=== PATIENT | male | born 1960 | race African-American/Black ===

== ENCOUNTER 2020-01-28 03:43 | Emergency (ER) | payer BC ==
[~2020-01-28] VITALS: Ht 177.8 cm; Wt 79.4 kg
[2020-01-28] MEDS ORDERED: IBUPROFEN 600 MG TABLET PO ONE (03:58)
[2020-01-28] MEDS ORDERED: MINERAL OIL 133 ML (PYXIS) 1 EA ENEMA RC ONE ×2 (03:58→04:00)
[2020-01-28] MEDS ORDERED: IBUPROFEN 200 MG TABLET ONE (03:59)
[2020-01-28] MEDS ORDERED: IBUPROFEN 400 MG TABLET PO ONE (04:00)
--- NOTE | 2020-01-28 04:05 | NUR ---
PT CAME TO THE ED FOR CONSTIPATION X 2 DAYS. USED FLEET ENEMA AT HOME. PT AAOX4, VSS, RESPIRATIONS EVEN AND UNLABORED ON RA W/ NAD NOTED. PT CONNECTED TO THE MONITOR AND POX
--- NOTE | 2020-01-28 04:09 | NUR ---
EKG AT BEDSIDE
[2020-01-28] MEDS ORDERED: LORAZEPAM 1 MG TABLET PO ONE (05:30)
[2020-01-28] MEDS ORDERED: LORAZEPAM 1 MG TABLET ONE (05:30)
[2020-01-28] MEDS ORDERED: MAGNESIUM CITRATE 296 ML BOTTLE ONE (05:39)
--- NOTE | 2020-01-28 05:40 | NUR ---
PT STATES HE FEELS BETTER. VSS. MADE AWARE. NOT IN RESPIRATORY DISTRESS.
[2020-01-28 05:56] VITALS: BP 125/84
--- NOTE | 2020-01-28 05:56 | NUR ---
Patient discharged to home in stable condition. Written and verbal after care instructions given. Patient verbalizes understanding of instruction.
[2020-01-28] MEDS ORDERED: MAGNESIUM CITRATE 296 ML BOTTLE PO ONE (06:00)
== END 2020-01-28 05:57 | disposition home or self-care (01) ==
LOC: ER 03:45
DX: K59.00 Constipation, unspecified (principal); F41.9 Anxiety disorder, unspecified; R94.31 Abnormal electrocardiogram [ECG] [EKG]; Z85.810 Personal history of malignant neoplasm of tongue